=== PATIENT | male | born 1955 | race Caucasian/White ===

== ENCOUNTER 2016-08-31 12:17 | Day surgery (SDC) | payer OTHER ==
[~2016-08-31] VITALS: Ht 177.8 cm; Wt 113.0 kg
[2016-08-31] VITALS (8 sets, daily range): BP systolic 96–125; BP diastolic 52–69; PULSE 57–80; TEMP 97.5–98.5
[~2016-08-31 12:17] MED LIST: ALFUZOSIN HYDRO10 MG PO; AMITRIPTYLINE H25 M1 PO; APRISO0.375 GM PO; ARTIFICIAL TEAR15 M2 OU; ASACOL400 MG PO; ASPIRIN 32325 MG/TAB PO; ASPIRIN E.C. 8181 MG PO; ATIVAN1 MG PO; BENTYL 20MG TAB20 MG PO; CITALOPRAM20 MG PO; CRESTOR5 MG PO; ERGOCALCIFER50000 IU PO; FLUTICASON0.05 MG/AC NS; FOLIC ACID1 MG PO; HYOMAX-FT0.125 MG PO; IMDUR 30MG30 MG/TAB PO; LIPITOR 40MG TA40 MG PO; LISINOPRIL10 MG PO; LOPRESSOR 225 MG/TAB PO; NEURONTIN100 MG/CAP PO; NITROLINGU0.4 MG/ACT SL; NITROSTAT0.4 MG/TAB SL; OMEGA 31000 MG PO; PERCOCET 325 MG1 TAB PO; PLAVIX 75MG TAB75 MG PO; PROCARDIA XL 3030 MG PO; SUPER EPA W/BO400 MG PO; TOPROL XL 50MG50 MG PO; TYLENOL W/COD1 UDTAB PO; ULTRAM 50MG TAB50 MG PO; VITAMIN D2000 I1 PO; ZESTRIL 10MG10 MG PO; ZOLOFT 100MG100 MG PO; [UNRECOGNIZED DRUG - CODE] TP; [UNRECOGNIZED DRUG - OTHER] RC
[2016-08-31] MEDS ORDERED: ASPIRIN 81M81 MG/TA2 PO (12:48)
[2016-08-31] MEDS ORDERED: PRINIVIL5 MG PO (12:50)
[2016-08-31] MEDS ORDERED: NEURONTIN300 MG/CAP PO (12:52)
[2016-08-31] MEDS ORDERED: VITAMIN D32000 IU PO (13:21)
[2016-08-31 13:23] LABS: HEMATOCRIT 43.2 % (42.0-52.0); HEMOGLOBIN 15.9 g/dl (13.5-18.0); MEAN CELL VOLUME 89 fl (80.0-100.0); MEAN CORPUSCULAR HEMOGLOBIN 33 pg (27.0-31.0); MEAN CORPUSCULAR HGB CONC 37 g/dl (33.0-37.0); MEAN PLATELET VOLUME 11.4 fl (7.4-10.4); PLATELET COUNT 141 K/mm3 (130-400); RED BLOOD COUNT 4.85 M/mm3 (4.20-5.60); REDCELL DISTRIBUTION WIDTH-CV 12.6 % (11.5-14.5); WHITE BLOOD COUNT 6.4 K/mm3 (4.8-10.8)
[2016-08-31] MEDS ORDERED: THE MEDICINE S300 M1 PO (13:24)
[2016-08-31 13:26] LABS: INR 1.2 (0.8-3.0)
[2016-08-31] MEDS ORDERED: FLONASE NASAL S16 GM NS (13:27)
[2016-08-31] MEDS ORDERED: LIPITOR 80MG80 MG PO (13:29)
[2016-08-31] MEDS ORDERED: TOPROL XL 25MG25 MG PO (13:29)
[2016-08-31] MEDS ORDERED: RANEXA 500MG T500 MG PO (13:31)
[2016-08-31 13:34] LABS: CALCIUM 9.1 mg/dL (8.4-10.2); POTASSIUM 4.2 mmol/L (3.4-5.0)
[2016-09-01 03:12] VITALS: BP 108/65; PULSE 66; TEMP 97.7
[2016-09-01 07:35] VITALS: BP 128/71; PULSE 85; TEMP 98.8
[2016-09-01 11:51] VITALS: BP 108/62; PULSE 69; TEMP 97.6
[2016-09-01] MEDS ORDERED: CEPHALEXIN500 M1 PO (12:10)
== END 2016-09-01 13:03 | disposition home or self-care (01) ==
LOC: COL.CAR 12:17 → PEDS 17:59 → COL.CAR 09-01 13:03
PROVIDERS: Internal Medicine Interventional Cardiology
DX: I50.22 Chronic systolic (congestive) heart failure (principal); R00.1 Bradycardia, unspecified; R07.89 Other chest pain; I25.10 Atherosclerotic heart disease of native coronary artery without angina pectoris; I10 Essential (primary) hypertension; Z95.5 Presence of coronary angioplasty implant and graft; Z85.05 Personal history of malignant neoplasm of liver; Z87.891 Personal history of nicotine dependence
CPT/HCPCS: OP; C1721; C1894; C1895; C1898; J0690; J2250; J3010; J7030; J7040

== ENCOUNTER → 2018-04-21 | Outpatient (CLI) | payer MEDICARE, OTHER ==
[~2018-04-21] MED LIST changes: +ASPIRIN 81M81 MG/TA2 PO; +CEPHALEXIN500 M1 PO; +FLONASE NASAL S16 GM NS; +LIPITOR 80MG80 MG PO; +NEURONTIN300 MG/CAP PO; +PRINIVIL5 MG PO; +RANEXA 500MG T500 MG PO; +THE MEDICINE S300 M1 PO; +TOPROL XL 25MG25 MG PO; +VITAMIN D32000 IU PO
== END ==
LOC: COL.RAD 09:55
DX: M47.817 Spondylosis without myelopathy or radiculopathy, lumbosacral region (principal); M51.37 Other intervertebral disc degeneration, lumbosacral region; M48.07 Spinal stenosis, lumbosacral region

== ENCOUNTER → 2018-06-13 | Outpatient (CLI) | payer MEDICARE, OTHER | LOC: COL.RAD 11:45 | DX: M25.511 Pain in right shoulder (principal) ==

== ENCOUNTER → 2018-11-08 | Outpatient (CLI) | payer MEDICARE, OTHER | LOC: COL.RAD 12:48 | DX: S46.811A Strain of other muscles, fascia and tendons at shoulder and upper arm level, right arm, initial encounter (principal); S43.491A Other sprain of right shoulder joint, initial encounter; M89.311 Hypertrophy of bone, right shoulder ==

== ENCOUNTER 2020-07-05 11:46 | Day surgery (SDC) | payer MEDICARE, OTHER ==
[~2020-07-05] VITALS: Ht 177.8 cm; Wt 112.1 kg
[2020-07-05] VITALS (10 sets, daily range): BP systolic 101–112; BP diastolic 50–70; PULSE 60–72; TEMP 97
[2020-07-05] MEDS ORDERED: IMDUR 30MG30 MG/TAB PO (12:12)
[2020-07-05] MEDS ORDERED: ENTRESTO 97 MG1 EACH PO (12:12)
[2020-07-05] MEDS ORDERED: ATIVAN 1MG T1 MG/TAB PO (12:13)
[2020-07-05 12:39] LABS: HEMATOCRIT 38.4 % (42.0-52.0); HEMOGLOBIN 13.5 g/dl (13.5-18.0); MEAN CELL VOLUME 91 fl (80.0-100.0); MEAN CORPUSCULAR HEMOGLOBIN 32 pg (27.0-31.0); MEAN CORPUSCULAR HGB CONC 35 g/dl (33.0-37.0); MEAN PLATELET VOLUME 11.8 fl (7.4-10.4); PLATELET COUNT 92 K/mm3 (130-400); RED BLOOD COUNT 4.21 M/mm3 (4.20-5.60); REDCELL DISTRIBUTION WIDTH-CV 12.3 % (11.5-14.5)
[2020-07-05 12:45] LABS: CALCIUM 8.6 mg/dL (8.4-10.2); CREATININE, serum 0.91 (0.66-1.25); POTASSIUM 4.2 mmol/L (3.4-5.0)
[2020-07-05 12:57] LABS: INR 1.2 (0.8-3.0); PROTHROMBIN TIME 13.6 SECONDS (9.7-12.8)
[2020-07-05 12:59] LABS: PARTIAL THROMBOPLASTIN TIME 29.7 SECONDS (26.0-37.0)
--- NOTE | 2020-07-05 14:45 | NUR ---
Report from Cinda ESTEBAN. Transferred from [employer] by bed. Alert and oriented, denies pain and needs at this time. Right Tband with 16 cc air CD&I, good pulses and cap refill < 3 secs noted. VSS. bedside
--- NOTE | 2020-07-05 17:19 | NUR ---
16 cc air released from right Tband and dressing applied. INT discontinued intact. Discharge instructions given.
--- NOTE | 2020-07-05 17:30 | NUR ---
Transferred to private car by tomi
== END 2020-07-05 17:30 | disposition home or self-care (01) ==
LOC: COL.CAR 11:46
PROVIDERS: Internal Medicine Interventional Cardiology
DX: I25.10 Atherosclerotic heart disease of native coronary artery without angina pectoris (principal); I50.20 Unspecified systolic (congestive) heart failure; R94.39 Abnormal result of other cardiovascular function study; Z20.822 Contact with and (suspected) exposure to COVID-19; Z79.82 Long term (current) use of aspirin; Z79.899 Other long term (current) drug therapy; Z79.52 Long term (current) use of systemic steroids; Z87.891 Personal history of nicotine dependence; Z85.05 Personal history of malignant neoplasm of liver
CPT/HCPCS: J1644; J2250; J3010; Q9967

== ENCOUNTER → 2021-04-24 | Outpatient (CLI) | payer MEDICARE, OTHER ==
[~2021-04-24] MED LIST changes: +ATIVAN 1MG T1 MG/TAB PO; +ENTRESTO 97 MG1 EACH PO
== END ==
LOC: COL.RAD 10:21
DX: Z01.812 Encounter for preprocedural laboratory examination (principal); R06.02 Shortness of breath; R07.89 Other chest pain
CPT/HCPCS: Q9967